=== PATIENT | female | born 2000 | race Caucasian/White ===

== ENCOUNTER → 2020-05-01 10:59 | Outpatient (BNVA) | payer OTHER, SELFPAY | PROVIDERS: Family Provider Family Medicine; PCP Family Medicine; Visit Provider Emergency Medicine | DX: Z20.828 Contact with and (suspected) exposure to other viral communicable diseases (principal) | CPT/HCPCS: 87635 ==

== ENCOUNTER 2025-02-27 10:23 | Outpatient (CLI) | payer BC, SELFPAY ==
--- NOTE | 2025-02-27 10:35 | XR_ITS ---
WS: [id number] Left hip, AP and frog-leg views, 02/27/2025 Clinical Data: M25.552 - Pain in left hip Comparison: None. Findings: No fractures or dislocations are seen. The left hip shows no erosion, sclerosis, bone destruction or fragmentation of the left femoral head. The soft tissues are not remarkable. The adjacent pelvis is normal. XR/XR hip LT 2-3V wo/w pel* [id number] Impression: Negative left hip.
== END 2025-02-27 10:24 | disposition home or self-care (01) ==
PROVIDERS: PCP Nurse Practitioner; Visit Provider Nurse Practitioner
DX: M25.552 Pain in left hip (principal); G89.29 Other chronic pain
CPT/HCPCS: 73502

== ENCOUNTER → 2025-03-28 08:55 | Outpatient (BNVA) | payer BC, SELFPAY | PROVIDERS: PCP Nurse Practitioner; Visit Provider Nurse Practitioner | DX: M25.552 Pain in left hip (principal); G89.29 Other chronic pain; M25.352 Other instability, left hip; M54.50 Low back pain, unspecified | CPT/HCPCS: 73502 ==

== ENCOUNTER 2025-04-21 13:04 | Outpatient (CLI) | payer BC, SELFPAY ==
--- NOTE | 2025-04-21 13:45 | MR_ITS ---
WS: [id number] EXAMINATION: MR hip LT wo con* [id number] ORDER DATE: 04/21/2025 2:25 PM COMPARISON: None. HISTORY: left hip instablilty CONTRAST: None. TECHNIQUE: Coronal STIR of the Pelvis. Coronal proton density, coronal T1, axial T2 fat sat, axial T1, sagittal T2 fat sat, and sagittal T1 performed of the hip. FINDINGS: Normal bone marrow signal in the LEFT hip. Normal bone marrow signal in the LEFT femoral head and proximal femur. No evidence of avascular necrosis. No joint effusion. RIGHT hip is normal in appearance. Chronic appearing sclerosis LEFT inferior sacroiliac joint. No edema. MR/MR hip LT wo con* [id number] IMPRESSION: No acute LEFT hip findings.
== END 2025-04-21 13:05 | disposition home or self-care (01) ==
PROVIDERS: PCP Nurse Practitioner; Visit Provider Nurse Practitioner
DX: M25.352 Other instability, left hip (principal)
CPT/HCPCS: 73721